=== PATIENT | female | born 1995 | race Caucasian/White ===

== ENCOUNTER 2017-09-17 21:22 | Emergency (ER) | payer SELFPAY ==
[~2017-09-17] VITALS: Ht 180.3 cm; Wt 86.2 kg
[~2017-09-17 21:22] MED LIST: IBUPROFEN600 MG PO
[2017-09-17] MEDS ORDERED: KEFLEX500 MG PO (22:15)
== END 2017-09-17 22:31 | disposition home or self-care (01) ==
LOC: ED 21:22
DX: N39.0 Urinary tract infection, site not specified (principal); R51 Headache; F17.200 Nicotine dependence, unspecified, uncomplicated
CPT/HCPCS: 81001; 84703; 87088; 99283

== ENCOUNTER 2019-01-06 09:04 | Emergency (ER) | payer OTHER ==
[~2019-01-06] VITALS: Ht 182.9 cm; Wt 86.2 kg
[~2019-01-06 09:04] MED LIST changes: +KEFLEX500 MG PO
[2019-01-06] MEDS ORDERED: KEFLEX500 MG PO (09:49)
== END 2019-01-06 10:35 | disposition home or self-care (01) ==
LOC: ED 09:04
PROC: 3E0T3GC Introduction of Other Therapeutic Substance into Peripheral Nerves and Plexi, Percutaneous Approach (ICD-10-PCS; principal; 2019-01-06)
DX: S60.451A Superficial foreign body of left index finger, initial encounter (principal); F17.200 Nicotine dependence, unspecified, uncomplicated; Y28.8XXA Contact with other sharp object, undetermined intent, initial encounter
CPT/HCPCS: 64450; 73140; 90471; 90715; 99283-25

== ENCOUNTER 2019-04-29 20:17 | Emergency (ER) | payer SELFPAY ==
[~2019-04-29] VITALS: Ht 182.9 cm; Wt 81.7 kg
== END 2019-04-29 21:50 | disposition home or self-care (01) ==
LOC: ED 20:17
DX: R51 Headache (principal); D64.9 Anemia, unspecified; E87.6 Hypokalemia; F17.200 Nicotine dependence, unspecified, uncomplicated
CPT/HCPCS: 80053; 84703; 85025; 99284

== ENCOUNTER 2019-06-29 01:51 | Emergency (ER) | payer OTHER ==
[~2019-06-29] VITALS: Ht 182.9 cm; Wt 81.7 kg
[2019-06-30] MEDS ORDERED: IBU800 MG PO (09:18)
[2019-06-30] MEDS ORDERED: NORCO 5-325 TA1 EACH PO (09:19)
== END 2019-06-29 04:58 | disposition home or self-care (01) ==
LOC: ED 01:51
DX: O20.9 Hemorrhage in early pregnancy, unspecified (principal); O99.331 Smoking (tobacco) complicating pregnancy, first trimester; F17.200 Nicotine dependence, unspecified, uncomplicated
CPT/HCPCS: 76801; 76817; 84702; 85025; 86900; 86901; 99284-25

== ENCOUNTER 2020-07-02 05:23 | Inpatient (IN) | payer OTHER ==
[~2020-07-02] VITALS: Ht 182.9 cm; Wt 93.0 kg
[~2020-07-02 05:23] MED LIST changes: +IBU800 MG PO; +NORCO 5-325 TA1 EACH PO
--- NOTE | 2020-07-02 11:02 | PR ---
[facility] [address] [facility] [place], [place] [address] Signed Progress Notes IP Datetime Report Generated by CPN: 07/02/2020 11:02 PROGRESS NOTES: [id number] Impression: Normal Progression of Labor; Reassuring Heart Rate Plan: Continue Present Management Other Plans: Discussed indications for IUPC and pitocin augmentation VITAL SIGNS: [id number] Vital Signs: Reviewed; Within Normal Limits EXAM: [id number] Dilatation: 3.5 Effacement: 70 Station: -3 Contractions: Irregular MEMBRANES: [id number] Comments: Pt seen and examined. C/O lower back discomfort but denies regular painful contractions. Will consider IUPC / pitocin augmentation at next recheck. Pt declines epidural at this point FETUS A: [id number] FHR Baseline: 130 Variability: Moderate 6-25bpm Accelerations: 15X15 Decelerations: None FHR Category: Category I Presentation: Vertex Comments on Fetus A: No evidence of metabolic acidosis FETUS B: [id number] Signing Physician: Roverto Lomas DO Copies: ~ *Electronically Signed* 07/02/20 1102 ROVERTO LOMAS DO PATIENT NAME: FAZAL AVENDAÑO PROGRESS NOTE DATE OF : [birth year] PHYSICIAN: ROVERTO LOMAS DO RPT #: [id number] REPORT IS CONFIDENTIAL AND NOT TO BE RELEASED WITHOUT AUTHORIZATION
--- NOTE | 2020-07-02 13:49 | PR ---
[facility] [address] [facility] [place] [address] Signed Progress Notes IP Datetime Report Generated by CPN: 07/02/2020 13:49 PROGRESS NOTES: [id number] Impression: Normal Progression of Labor; Reassuring Heart Rate Procedures: Intrauterine Pressure Catheter; Sterile Vag Exam Plan: Augmentation Other Plans: Discussed indications for IUPC and pitocin augmentation Informed Consent Obtain: Vaginal Delivery VITAL SIGNS: [id number] Vital Signs: Reviewed; Within Normal Limits EXAM: [id number] Dilatation: 5.0 Effacement: 80 Station: -3 Contractions: Irregular MEMBRANES: [id number] Comments: Pt seen and examined. Doing well. Uncomfortable w/ contractions, but declines epidural. IUPC placed without difficulty. Discussed anticipated course of labor. FETUS A: [id number] FHR Baseline: 130 Variability: Moderate 6-25bpm Accelerations: 15X15 Decelerations: None FHR Category: Category I Presentation: Vertex Comments on Fetus A: No evidence of metabolic acidosis FETUS B: [id number] Signing Physician: Roverto Lomas DO Copies: ~ *Electronically Signed* 07/02/20 1349 ROVERTO LOMAS DO PATIENT NAME: JAROCHO,FAZAL JOVANNA PROGRESS NOTE DATE OF : 97 PHYSICIAN: ROVERTO LOMAS DO RPT #: [id number] REPORT IS CONFIDENTIAL AND NOT TO BE RELEASED WITHOUT AUTHORIZATION
--- NOTE | 2020-07-03 07:53 | PR ---
[facility] [address] [facility] [place], [place] [address] Signed PP Progress Notes Datetime Report Generated by CPN: 07/03/2020 07:52 SUBJECTIVE: [id number] Pain: Within Normal Limits Nausea/Vomiting: Denies Flatus: Yes Bowel Movement: No Vital Signs: [id number] Vital Signs: Reviewed Cardiovascular: Normal Respiratory: Normal Abdomen/Uterus: Normal Lochia: Normal Vulva/Perineum: Not Done Breasts: Not Done CVA Tenderness: Normal Extremities: Normal Incision: Not Applicable Progress: Normal Exam Comments: Fundus firm U-2 nontender IMPRESSION/PLAN/PROCEDURES: [id number] Impression: Normal Progression Plan: Continue Present Management Progress Notes: Pt seen and examined. Doing well. Ambulating, voiding, and tolerating full diet. Pain and lochia minimal. . +Flatus/stool. No fevers/chills or other concerns. Anticipate d/c home tomorrow. Signing Physician: Roverto Lomas DO Copies: ~ *Electronically Signed* 07/03/20 0752 ROVERTO LOMAS DO PATIENT NAME: RUBEN AVENDAÑOFRANCIE BENNETTLE PROGRESS NOTE DATE OF : 97 PHYSICIAN: ROVERTO LOMAS DO RPT #: [id number] REPORT IS CONFIDENTIAL AND NOT TO BE RELEASED WITHOUT AUTHORIZATION
--- NOTE | 2020-07-04 07:11 | PR ---
[facility] [address] [facility] [place], [place] [address] Signed PP Progress Notes Datetime Report Generated by CPN: 07/04/2020 07:11 SUBJECTIVE: [id number] Pain: Within Normal Limits Nausea/Vomiting: Denies Flatus: Yes Bowel Movement: Yes Vital Signs: [id number] Vital Signs: Reviewed; Within Normal Limits Cardiovascular: Normal Respiratory: Normal Abdomen/Uterus: Normal Lochia: Normal Vulva/Perineum: Not Done Breasts: Not Done CVA Tenderness: Normal Extremities: Normal Incision: Not Applicable Progress: Normal Exam Comments: Fundus firm U-2 nontender IMPRESSION/PLAN/PROCEDURES: [id number] Impression: Normal Progression Plan: Discharge Progress Notes: Pt seen and examined. Doing well. Ambulating, voiding, and tolerating full diet. Pain and lochia minimal. well. No fevers/chills. No other concerns. Desires d/c home. Reviewed discharge instructions in detail. Unsure of plans for contraception. All questions answered to best of my ability and to patient's apparent satisfaction Signing Physician: Roverto Lomas DO Copies: ~ *Electronically Signed* 07/04/20 07 ROVERTO LOMAS DO PATIENT NAME: FAZAL AVENDAÑO PROGRESS NOTE DATE OF : 97 PHYSICIAN: ROVERTO LOMAS DO RPT #: [id number] REPORT IS CONFIDENTIAL AND NOT TO BE RELEASED WITHOUT AUTHORIZATION
== END 2020-07-04 10:10 | disposition home or self-care (01) | DRG 807 ==
LOC: FBC 05:23
PROVIDERS: ADMIT Obstetrics & Gynecology; ATTEND Obstetrics & Gynecology
PROC: 10E0XZZ Delivery of Products of Conception, External Approach (ICD-10-PCS; principal; 2020-07-02)
PROC: 0HQ9XZZ Repair Perineum Skin, External Approach (ICD-10-PCS; 2020-07-02)
PROC: 0UQKXZZ Repair Hymen, External Approach (ICD-10-PCS; 2020-07-02)
PROC: 10907ZC Drainage of Amniotic Fluid, Therapeutic from Products of Conception, Via Natural or Artificial Opening (ICD-10-PCS; 2020-07-02)
PROC: 10H07YZ Insertion of Other Device into Products of Conception, Via Natural or Artificial Opening (ICD-10-PCS; 2020-07-02)
PROC: 00HU33Z Insertion of Infusion Device into Spinal Canal, Percutaneous Approach (ICD-10-PCS; 2020-07-02)
PROC: 3E0R3BZ Introduction of Anesthetic Agent into Spinal Canal, Percutaneous Approach (ICD-10-PCS; 2020-07-02)
DX: O69.1XX0 Labor and delivery complicated by cord around neck, with compression, not applicable or unspecified (principal); Z37.0 Single live birth; Z3A.39 39 weeks gestation of pregnancy; O99.334 Smoking (tobacco) complicating childbirth; F17.210 Nicotine dependence, cigarettes, uncomplicated; O76 Abnormality in fetal heart rate and rhythm complicating labor and delivery; O99.02 Anemia complicating childbirth; D64.9 Anemia, unspecified; O70.0 First degree perineal laceration during delivery; Z86.19 Personal history of other infectious and parasitic diseases
CPT/HCPCS: 36415; 85027; J2590; J2795; J3010; J7121

== ENCOUNTER 2021-02-19 10:55 | Emergency (ER) | payer OTHER ==
[~2021-02-19] VITALS: Ht 180.3 cm; Wt 77.1 kg
[2021-02-19] MEDS ORDERED: CEPHALEXIN500 M1 PO (11:40)
== END 2021-02-19 11:53 | disposition home or self-care (01) ==
LOC: ED 10:55
DX: S61.431A Puncture wound without foreign body of right hand, initial encounter (principal); D64.9 Anemia, unspecified; Z87.891 Personal history of nicotine dependence
CPT/HCPCS: 73130; 99283-25

== ENCOUNTER 2021-12-12 00:39 | Inpatient (IN) | payer OTHER ==
[~2021-12-12 00:39] MED LIST changes: +CEPHALEXIN500 M1 PO
--- NOTE | 2021-12-12 02:22 | NUR ---
SWAB DONE TO BOTH NARES AND SENT TO IN HOUSE LAB.
== END 2021-12-13 13:25 | disposition home or self-care (01) | DRG 807 ==
LOC: FBCO 00:39 → FBC 01:43 → FBCO 12-19 08:59
PROVIDERS: ADMIT Obstetrics & Gynecology; ATTEND Obstetrics & Gynecology
PROC: 10E0XZZ Delivery of Products of Conception, External Approach (ICD-10-PCS; principal; 2021-12-12)
DX: O62.3 Precipitate labor (principal); Z37.0 Single live birth; Z3A.39 39 weeks gestation of pregnancy; Z67.10 Type A blood, Rh positive; O99.334 Smoking (tobacco) complicating childbirth; F17.210 Nicotine dependence, cigarettes, uncomplicated; Z20.822 Contact with and (suspected) exposure to COVID-19
CPT/HCPCS: 36415; 84112; 85025; 85027; 86850; 86900; 86901; 87502; A9270; C9803; J2590; J7121; U0003

== ENCOUNTER 2022-10-02 17:59 | Emergency (ER) | payer OTHER ==
[~2022-10-02] VITALS: Ht 182.9 cm; Wt 74.4 kg
--- OUTSIDE RECORDS SUMMARY | 2022-10-02 18:10 | XMS ---
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 Sravani VISIT COUNT (12 MO.) 2 [facility] TOTAL 2 NOTE: Visits indicate total known visits. ED/UCC VISIT TRACKING (12 MO.) 10/02/2022 18:00 [facility] [place] TYPE: Emergency COMPLAINT: - DENTAL ISSUES 09/30/2022 11:27 [facility] [place] TYPE: Emergency COMPLAINT: - HEART RACING, LIGHTHEADED DIAGNOSES: - Hypothyroidism, unspecified - Nicotine dependence, unspecified, uncomplicated - Palpitations INPATIENT VISIT TRACKING (12 MO.) 12/12/2021 01:43 [facility] [place] TYPE: [facility] COMPLAINT: - LABOR DIAGNOSES: - 39 weeks gestation of - 39 weeks gestation of - Contact with and (suspected) exposure to COVID-19 - Contact with and (suspected) exposure to COVID-19 - Nicotine dependence, cigarettes, uncomplicated - Nicotine dependence, cigarettes, uncomplicated - Precipitate labor - Single live - Single live - Smoking (tobacco) complicating childbirth - Smoking (tobacco) complicating childbirth - Type A blood, Rh positive - Type A blood, Rh positive [email or web address]
[2022-10-02] MEDS ORDERED: HYDROCODON-ACE1 EA10 PO (20:00)
[2022-10-02] MEDS ORDERED: CLEOCIN HCL300 MG PO (20:00)
[2022-10-02 21:14] VITALS: BP 136/88
== END 2022-10-02 21:17 | disposition home or self-care (01) ==
LOC: ED 17:59
DX: K04.7 Periapical abscess without sinus (principal); F17.200 Nicotine dependence, unspecified, uncomplicated
CPT/HCPCS: 96365; 99282-25; A9270; J0696

== ENCOUNTER 2022-11-12 19:40 | Emergency (ER) | payer OTHER ==
[~2022-11-12] VITALS: Ht 182.9 cm; Wt 76.6 kg
[~2022-11-12 19:40] MED LIST changes: +CLEOCIN HCL300 MG PO; +HYDROCODON-ACE1 EA10 PO
[2022-11-12] MEDS ORDERED: SEROQUEL50 MG PO (21:17)
[2022-11-12 21:56] VITALS: BP 115/72
== END 2022-11-12 21:56 | disposition home or self-care (01) ==
LOC: ED 19:40
DX: S83.91XA Sprain of unspecified site of right knee, initial encounter (principal); F17.200 Nicotine dependence, unspecified, uncomplicated; X50.1XXA Overexertion from prolonged static or awkward postures, initial encounter
CPT/HCPCS: 73560; 99283 25

== ENCOUNTER 2024-07-25 23:26 | Emergency (ER) | payer OTHER ==
[~2024-07-25] VITALS: Ht 182.9 cm; Wt 92.0 kg
[~2024-07-25 23:26] MED LIST changes: +PAXLOVID 300-11 EACH PO; +SEROQUEL50 MG PO
--- OUTSIDE RECORDS SUMMARY | 2024-07-25 23:33 | XMS ---
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 - Patient eloped before treatment completed. - Patient with suicidal and/or homicidal ideations eloped. Details: Patient LWBS. CRITERIA MET - Group Notification CARE PROVIDERS -, [facility] Dentist: Lab Rep [facility] PHONE: [phone] -Sang- Dentist: Lab Rep [facility] PHONE: [phone] [facility]: [facility] PHONE: [phone] JAMES MAI [facility] Current PHONE: [phone] Carlos has no Care Guidelines for this patient. E.DTeja VISIT COUNT (12 MO.) 1 [facility] Alvarez TOTAL 1 NOTE: Visits indicate total known visits. ED/UCC VISIT TRACKING (12 MO.) 07/25/2024 23:27 [facility] [place] TYPE: Emergency COMPLAINT: - DENTAL PAIN INPATIENT VISIT TRACKING (12 MO.) No inpatient visits to display in this time frame [email or web address]
[2024-07-25] MEDS ORDERED: BUTALB-ACETAMI1 EACH (23:38)
[2024-07-25] MEDS ORDERED: LAMOTRIGINE25 MG (23:39)
[2024-07-25] MEDS ORDERED: IRON325 M1 (23:39)
[2024-07-25] MEDS ORDERED: ENBRACE HR SOF1 EACH (23:40)
[2024-07-25] MEDS ORDERED: AMOXICILLIN/CLAVULANATE K 875 MG HOME.PACK PO ONE (23:45)
[2024-07-25 23:58] VITALS: BP 135/85
[2024-07-26] MEDS ORDERED: AMOX TR-K CLV1 EAC1 PO (00:04)
== END 2024-07-26 00:10 | disposition home or self-care (01) ==
LOC: ED 23:26
DX: K04.7 Periapical abscess without sinus (principal); K05.10 Chronic gingivitis, plaque induced; F17.200 Nicotine dependence, unspecified, uncomplicated; Z79.899 Other long term (current) drug therapy
CPT/HCPCS: 99282

== ENCOUNTER 2024-08-09 10:01 | Emergency (ER) | payer OTHER ==
[~2024-08-09] VITALS: Ht 182.9 cm; Wt 88.0 kg
[~2024-08-09 10:01] MED LIST changes: +AMOX TR-K CLV1 EAC1 PO; +BUTALB-ACETAMI1 EACH; +ENBRACE HR SOF1 EACH; +IRON325 M1; +LAMOTRIGINE25 MG
--- OUTSIDE RECORDS SUMMARY | 2024-08-09 10:08 | XMS ---
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 CRITERIA MET - Group Notification - [facility] - 2 Visits in 30 Days CARE PROVIDERS -, [facility] Dentist: Cutter [employer] Edge Trimmer [facility] PHONE: [phone] -Sang- Dentist: [employer] Edge Trimmer Count Includes [facility] PHONE: [phone] [facility]: [facility] Current FAMILY PHONE: [phone] PAU, JAMES J. [facility] Current PHONE: [phone] Carlos has no Care Guidelines for this patient. Sravani VISIT COUNT (12 MO.) 2 TER[facility] Alvarez TOTAL 2 NOTE: Visits indicate total known visits. ED/UCC VISIT TRACKING (12 MO.) 08/09/2024 10:02 [facility] [place] TYPE: Emergency COMPLAINT: - LT SHOULDER PAIN 07/25/2024 23:27 [facility] [place] TYPE: Emergency COMPLAINT: - DENTAL PAIN DIAGNOSES: - Chronic gingivitis, plaque induced - Nicotine dependence, unspecified, uncomplicated - Other marine oil terminal superintendent (current) drug therapy - Other specified disorders of teeth and supporting structures - Periapical abscess without sinus INPATIENT VISIT TRACKING (12 MO.) No inpatient visits to display in this time frame [email or web address]
[2024-08-09] MEDS ORDERED: LIDODERM1 EACH TOP (11:01)
[2024-08-09] MEDS ORDERED: HYDROCODON-ACE1 EA10 PO (11:01)
[2024-08-09 11:09] VITALS: BP 141/99
== END 2024-08-09 11:09 | disposition home or self-care (01) ==
LOC: ED 10:01
DX: M54.12 Radiculopathy, cervical region (principal); F17.200 Nicotine dependence, unspecified, uncomplicated
CPT/HCPCS: 99283

== ENCOUNTER 2024-08-14 07:14 | Inpatient (IN) | payer OTHER ==
[~2024-08-14] VITALS: Ht 182.9 cm; Wt 89.8 kg
[~2024-08-14 07:14] MED LIST changes: +LIDODERM1 EACH TOP
[2024-08-14] MEDS ORDERED: MAGNESIUM HYDROXIDE/AL HYDROX 30 ML CUP PO PRN ×2 (07:30→17:30)
[2024-08-14] MEDS ORDERED: LACTATED RINGER'S 1,000 ML IV SCH (07:30)
[2024-08-14] MEDS ORDERED: OXYTOCIN/0.9 % SODIUM CHLORIDE 30 UNITS/500 ML BAG IV SCH (07:30)
[2024-08-14] MEDS ORDERED: CALCIUM CARBONATE 500 MG CHEW PO PRN ×2 (07:30→17:30)
[2024-08-14] MEDS ORDERED: ondansetron HCL 4 MG/2 ML VIAL IV PRN (07:30)
[2024-08-14] MEDS ORDERED: LACTATED RINGER'S 1,000 ML IV PRN (07:30)
[2024-08-14 07:59] LABS: HEMATOCRIT 32.7 % (35.0-50.0); HEMOGLOBIN 11.1 g/dL (12.0-18.0); MCHC 33.8 g/dl (30-36); MCV 79.7 fl (81-99); PLATELET COUNT 257 K/uL (140-440); RDW 22.4 (10.5-15.0)
[2024-08-14 08:45] LABS: AMPHETAMINES, URINE NEGATIVE (NEGATIVE); BARBITURATES, URINE POSITIVE (NEGATIVE); BENZODIAZEPINE, URINE NEGATIVE (NEGATIVE); BUPRENORPHINE, URINE NEGATIVE (NEGATIVE); CANNABINOID, URINE NEGATIVE (NEGATIVE); COCAINE, URINE NEGATIVE (NEGATIVE); ECSTASY, URINE NEGATIVE (NEGATIVE); FENTANYL, URINE NEGATIVE (NEGATIVE); METHADONE, URINE NEGATIVE (NEGATIVE); OPIATES, URINE NEGATIVE (NEGATIVE); OXYCODONE, URINE NEGATIVE (NEGATIVE); PHENCYCLIDINE, URINE NEGATIVE (NEGATIVE)
[2024-08-14 08:54] LABS: ABO A; ANTIBODY SCREEN NEGATIVE; RH POSITIVE
[2024-08-14 09:19] VITALS: BP 121/75
--- NOTE | 2024-08-14 13:17 | PR ---
[facility] [address] [place], [place] [address] Signed Progress Notes IP Datetime Report Generated by CPN: 08/14/2024 13:17 PROGRESS NOTES: [id number] Impression: Normal Progression of Labor; Reassuring Heart Rate Procedures: Intrauterine Pressure Catheter; Sterile Vag Exam Plan: Continue Present Management Other Plans: Consider augmentation if indicated per IUPC data Informed Consent Obtain: Vaginal Delivery Other Informed Consents: IUPC VITAL SIGNS: [id number] Vital Signs: Reviewed EXAM: [id number] Dilatation: 3.0 Effacement: 70 Station: -3 Contractions: q 1-2 min, mild MEMBRANES: [id number] ROM Note: Afebrile Comments: Pt seen and examined. Doing well. FHR reassuring Cat 1. Minimal cervical change since AROM _ 4 hrs ago but contractions increasing. IUPC placed to help guide management / augmentation if needed. Pt understands and agrees. head well applied FETUS A: [id number] FHR Baseline: 145 Variability: Moderate 6-25bpm Accelerations: 15X15 Decelerations: None FHR Category: Category I Presentation: Vertex Comments on Fetus A: No evidence of metabolic acidosis FETUS B: [id number] Signing Physician: Roverto Lomas DO Copies: ~ *Electronically Signed* 08/14/24 6004 ROVERTO LOMAS (MARTIN) DO PATIENT NAME: FAZAL AVENDAÑO PROGRESS NOTE DATE OF : 97 PHYSICIAN: ROVERTO LOMAS (JD) DO RPT #: [id number] REPORT IS CONFIDENTIAL AND NOT TO BE RELEASED WITHOUT AUTHORIZATION
[2024-08-14] MEDS ORDERED: OXYTOCIN/0.9 % SODIUM CHLORIDE 500 ML IV SCH ×2 (13:30→17:30)
[2024-08-14] MEDS ORDERED: ROPIVACAINE 0.2% 200 ML BAG ONE (16:04)
[2024-08-14] MEDS ORDERED: BUPIVACAINE HCL 0.25% 10 ML SDV INJ ONE (16:04)
[2024-08-14] MEDS ORDERED: LIDOCAINE HCL 2% 5 ML SDV ONE (16:04)
[2024-08-14] MEDS ORDERED: ROPIVACAINE 0.2% 200 ML BAG EPIDURAL SCH ×2 (16:45)
[2024-08-14] MEDS ORDERED: LACTATED RINGER'S 2,000 ML IV ONE (16:45)
[2024-08-14] MEDS ORDERED: LACTATED RINGER'S 500 ML IV PRN (16:45)
[2024-08-14] MEDS ORDERED: ePHEDrine sulfate 5 MG/ML SYRINGE IV PRN (16:45)
[2024-08-14] MEDS ORDERED: IBUPROFEN 600 MG TAB PO PRN (17:30)
[2024-08-14] MEDS ORDERED: ACETAMINOPHEN 325 MG TAB PO PRN (17:30)
[2024-08-14] MEDS ORDERED: MAGNESIUM HYDROXIDE 30 ML UDC PO PRN (17:30)
[2024-08-14] MEDS ORDERED: OXYCODONE/APAP 5/325 TAB PO PRN (17:30)
[2024-08-14] MEDS ORDERED: BENZOCAINE 60 ML AEROSOL TOP PRN (17:30)
[2024-08-14] MEDS ORDERED: HYDROCODONE/ACETA 5/325 TAB PO PRN (17:30)
[2024-08-14] MEDS ORDERED: HYDROCORTISONE ACETATE 25 MG SUPP PR PRN (17:30)
[2024-08-14] MEDS ORDERED: WITCH HAZEL/GLYCERIN 1 EA PAD TOP PRN (17:30)
[2024-08-14] MEDS ORDERED: SENNOSIDES/DOCUSATE 1 EA TAB PO SCH (21:00)
[2024-08-15 05:37] LABS: HEMATOCRIT 32.5 % (35.0-50.0); HEMOGLOBIN 10.9 g/dL (12.0-18.0); MCHC 33.6 g/dl (30-36); MCV 80.1 fl (81-99); RBC 4.05 M/ul (4.3-5.7); RDW 22.6 (10.5-15.0)
--- NOTE | 2024-08-15 18:33 | PR ---
[facility] [address] [facility] [place], [place] [address] Signed PP Progress Notes Datetime Report Generated by CPN: 08/15/2024 18:33 SUBJECTIVE: [id number] Pain: Within Normal Limits Nausea/Vomiting: Denies Flatus: Yes Bowel Movement: No Vital Signs: [id number] Vital Signs: Reviewed; Within Normal Limits Cardiovascular: Normal Respiratory: Normal Abdomen/Uterus: Normal Lochia: Normal Vulva/Perineum: Not Done Breasts: Not Done CVA Tenderness: Normal Extremities: Normal Incision: Not Applicable Progress: Normal Exam Comments: Fundus firm U-2 nontender IMPRESSION/PLAN/PROCEDURES: [id number] Impression: Normal Progression Plan: Discharge Progress Notes: Pt seen and examined. Doing well. Ambulating, voiding, and tolerating full diet. Pain and lochia minimal. Breastefeding well. No concerns. Desires d/c home. Reviewed d/c instructions and medications in detail. All questions answered. Micronor or condoms for pp contraception Signing Physician: Roverto Lomas DO Copies: ~ *Electronically Signed* 08/15/24 1836 ROVERTO LOMAS (MARTIN) DO PATIENT NAME: FAZAL AVENDAÑO PROGRESS NOTE DATE OF : 97 PHYSICIAN: ROVERTO LOMAS) DO RPT #: [id number] REPORT IS CONFIDENTIAL AND NOT TO BE RELEASED WITHOUT AUTHORIZATION
== END 2024-08-15 18:30 | disposition home or self-care (01) | DRG 807 ==
LOC: FBC 07:14
PROVIDERS: ADMIT Obstetrics & Gynecology; ATTEND Obstetrics & Gynecology
PROC: 10E0XZZ Delivery of Products of Conception, External Approach (ICD-10-PCS; principal; 2024-08-14)
PROC: 10907ZC Drainage of Amniotic Fluid, Therapeutic from Products of Conception, Via Natural or Artificial Opening (ICD-10-PCS; 2024-08-14)
DX: O99.344 Other mental disorders complicating childbirth (principal); Z37.0 Single live birth; F31.9 Bipolar disorder, unspecified; O99.02 Anemia complicating childbirth; Z79.899 Other long term (current) drug therapy; Z98.890 Other specified postprocedural states; Z86.16 Personal history of COVID-19; Z3A.39 39 weeks gestation of pregnancy
CPT/HCPCS: 36415; 80307; 85027; 85060; 86850; 86900; 86901; A9270; J2003; J2795; J7121